=== PATIENT | female | born 2000 | race American Indian/Alaskan Native ===

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

== ENCOUNTER 2018-03-03 22:14 | Emergency (ER) | payer MEDICAID ==
[2018-03-03 22:14] VITALS: BMI 34.0
[2018-03-03 22:35] VITALS: TEMP 97.9
--- NOTE | 2018-03-03 22:59 | ED PDOC ---
Arrival/HPI - General Chief Complaint: GI Problem Time Seen by Provider: 03/03/18 22:51 Historian: Patient - History of Present Illness Narrative History of Present Illness (Text): 03/03/18 23:03 18 year old female, with past medical history of diabetes, htn and heart murmur, presents to the ED via EMS accompanied by sister for evaluation of nausea and vomiting since prior to arrival. Patient informs associated tremors and elevated blood pressure of 204 systolic en route to the ED. Patient reports symptoms are consistent with past episodes of anxiety, which resolves spontaneously. Patient currently informs improved symptoms with no other medical complaints. Patient denies any fever, chills, abdominal pain, chest pain, shortness of breath, headache, dizziness or any other complaints. Patient admits to smoking marijuana and drinking alcohol occasionally. Time/Duration: Prior to Arrival Symptom Onset: Gradual Symptom Course: Resolved Activities at Onset: Light Context: Home Past Medical History - Provider Review Nursing Documentation Reviewed: Yes - Infectious Disease Hx of Infectious Diseases: None - Cardiac Other/Comment: heart murmur - Psychiatric Hx Substance Use: No Family/Social History - Physician Review Nursing Documentation Reviewed: Yes Family/Social History: Unknown Family HX Smoking Status: Never Smoked Hx Alcohol Use: No Hx Substance Use: No Allergies/Home Meds Allergies/Adverse Reactions: Allergies No Known Allergies Allergy (Verified 03/03/18 22:20) Review of Systems - Physician Review All systems were reviewed & negative as marked: Yes - Review of Systems Respiratory: absent: SOB Cardiovascular: absent: Chest Pain Gastrointestinal: Nausea, Vomiting Physical Exam - Physical Exam Narrative Physical Exam (Text): 03/03/18 23:08 Constitutional: No acute distress. Head: Normocephalic. Atraumatic. Eyes: PERRL. ENT: Moist mucous membranes. Neck: Supple. Cardiovascular: Regular rate. Chest: No tenderness. Respiratory: Clear to auscultation bilaterally. GI: Soft. Nontender. Nondistended. Back: No CVA tenderness. Musculoskeletal: No tenderness or swelling of extremities. Skin: No rash. Neurologic: Alert, no focal deficit. Vital Signs Reviewed: Yes Vital Signs Temp Pulse Resp BP Pulse Ox 03/03/18 22:27 97.9 F 98 H 18 134/87 99 Temperature: Afebrile Blood Pressure: Normal Pulse: Regular Respiratory Rate: Normal Appearance: Positive for: Well-Appearing, Non-Toxic, Comfortable Pain Distress: None Mental Status: Positive for: Alert and Oriented X 3 Finger Stick Blood Glucose: 122 Medical Decision Making ED Course and Treatment: 03/03/18 23:08 Impression: 18 year old female presents to the ED for evaluation nausea and vomiting. Plan: -- Reassess and disposition Prior Visits: Notes and results from previous visits were reviewed. Progress Notes: Patient with normal examination, BP normalized, no nausea or vomiting currently. Patient feels well to go home and wishes to leave. Advised to return to ED for any worsening symptoms. - Scribe Statement The provider has reviewed the documentation as recorded by the Scribe Francisca Gibson. All medical record entries made by the Scribe were at my direction and personally dictated by me. I have reviewed the chart and agree that the record accurately reflects my personal performance of the history, physical exam, medical decision making, and the department course for this patient. I have also personally directed, reviewed, and agree with the discharge instructions and disposition. Disposition/Present on Arrival - Present on Arrival Any Indicators Present on Arrival: No History of DVT/PE: No History of Uncontrolled Diabetes: No Urinary Catheter: No History of Decub. Ulcer: No History Surgical Site Infection Following: None - Disposition Have Diagnosis and Disposition been Completed?: Yes Diagnosis: Anxiety Disposition: HOME/ ROUTINE Disposition Time: 22:59 Patient Plan: Discharge Condition: STABLE Discharge Instructions (ExitCare): Anxiety, Adult (DC) Referrals: Zoraida Hernandez MD [Primary Care Provider] - Follow up with primary Forms: [employer] (Kosovan)
[2018-03-03 23:28] VITALS: BP 132/80; PULSE 87; RESP 16; O2SAT 100
== END 2018-03-03 23:25 | disposition home or self-care (01) ==
LOC: ED 22:14
DX: F41.9 Anxiety disorder, unspecified (principal); I10 Essential (primary) hypertension